=== PATIENT | male | born 1960 | race Caucasian/White ===

== ENCOUNTER 2016-11-19 08:21 | Emergency (ER) | payer BC, OTHER ==
[2016-11-19 08:26] VITALS: BP 130/82; PULSE 81; TEMP 98.2; BMI 24.3
[2016-11-19] MEDS ORDERED: DIPHTH,PERTUSS(ACELL),TET 0.5 ML DISP.SYRIN IM ONE (09:06)
--- NOTE | 2016-11-19 09:13 | PDOC ---
History of Present Illness - General Chief Complaint: Laceration Stated Complaint: i cut my finger Time Seen by Provider: 11/19/16 08:40 - History of Present Illness Initial Comments: 11/19/16 10:19 Chief complaint: Finger injury History of present illness: Patient caught his left index finger on the sharp edge of the school walker. There was bleeding. This has resolved. There is no distal numbness or tingling. There is no limited motion Review of systems: As above. 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 The laceration appears superficial, involving only skin. The flap was elevated and there was no deep penetration and no deep structures exposed. Sensory exam to the fingertips is intact. Extensor tendon function is full and strong against resistance Impression: Superficial laceration involving the skin of the dorsum of the second finger Plan: Repair of laceration wound care and follow-up as necessary Past History - Past Medical History Allergies/Adverse Reactions: Allergies Allergy/AdvReac Type Severity Reaction Status Date / Time No Known Allergies Allergy Verified 11/19/16 08:22 Home Medications: Ambulatory Orders Diclofenac Sodium [Voltaren -] 50 mg PO DAILY 10/25/14 Anemia: No Asthma: No Cancer: No Cardiac Disorders: No CVA: No COPD: No CHF: No Dementia: No Diabetes: No GI Disorders: No Disorders: No HTN: No Hypercholesterolemia: No Liver Disease: No Seizures: No Thyroid Disease: No Other medical history: denies - Surgical History Abdominal Surgery: No Appendectomy: No Cardiac Surgery: No Cholecystectomy: No Lung Surgery: No Neurologic Surgery: No Orthopedic Surgery: Yes (Repair of Ankle Fx Bilateral, Right Carpal Tunnel Release) - Psycho/Social/Smoking Cessation Hx Anxiety: No Suicidal Ideation: No Smoking History: Never smoked Have you smoked in the past 12 months: No Hx Alcohol Use: No Drug/Substance Use Hx: No Substance Use Type: None Hx Substance Use Treatment: No *Physical Exam - Vital Signs Last Vital Signs Temp Pulse Resp BP Pulse Ox 98.2 F 81 16 130/82 100 11/19/16 08:22 11/19/16 08:22 11/19/16 08:22 11/19/16 08:22 11/19/16 08:22 Medical Decision Making - Medical Decision Making 11/19/16 10:22 Note: Repair laceration The wound was scrubbed and irrigated with normal saline, the edge of the flap was elevated, there were no deep structures involved and the flap consisted only of skin. The flap was reapproximated using Steri-Strips, facilitated adhesion with benzoin. Splinted in extension to prevent distraction of the skin edges. To maintain splinting for 3 days, recheck immediately if sign of infection, then begin gentle range of motion once skin has began healing. Referred to Dr. Laird if there is any distal numbness tingling weakness or limited motion, especially in extension. Tetanus update was administered. Patient fully ambulatory and in no pain or other distress upon discharge to follow-up as directed *DC/Admit/Observation/Transfer Diagnosis at time of Disposition: Finger laceration Qualifiers: Encounter type: initial encounter Finger: index finger Damage to nail status: without damage Foreign body presence: without foreign body Laterality: left Qualified Code(s): S61.211A - Laceration without foreign body of left index finger without damage to nail, initial encounter - Discharge Dispostion Disposition: HOME Condition at time of disposition: Improved Admit: No - Referrals Referrals: Ambrocio Laird MD [Staff Physician] - - Patient Instructions Printed Discharge Instructions: DI for Laceration Repair - Post Discharge Activity Work/School Note: Back to Work
== END 2016-11-19 09:18 | disposition home or self-care (01) ==
LOC: FER 08:21
PROC: 2W3KX1Z Immobilization of Left Finger using Splint (ICD-10-PCS; principal; 2016-11-19)
PROC: 3E0234Z Introduction of Serum, Toxoid and Vaccine into Muscle, Percutaneous Approach (ICD-10-PCS; 2016-11-19)
DX: S61.211A Laceration without foreign body of left index finger without damage to nail, initial encounter (principal); W26.8XXA Contact with other sharp object(s), not elsewhere classified, initial encounter; Y93.89 Activity, other specified; Y92.9 Unspecified place or not applicable
CPT/HCPCS: 90715; 99282-25